=== PATIENT | male | born 1965 | race Caucasian/White ===

== ENCOUNTER 2025-01-31 18:49 | Emergency (ER) | payer OTHER, SELFPAY ==
[2025-01-31 18:50] VITALS: BP 139/76; PULSE 63; RESP 18; TEMP 36.7; O2SAT 100; BMI 34.8
--- NOTE | 2025-01-31 18:53 | EKG12_ITS ---
Test Reason : CP Blood Pressure : */* mmHG Vent. Rate : 67 BPM Atrial Rate : 67 BPM P-R Int : 168 ms QRS Dur : 106 ms QT Int : 440 ms P-R-T Axes : 18 13 75 degrees QTcB Int : 464 ms Sinus rhythm with Premature atrial complexes Incomplete right bundle branch block Borderline ECG Confirmed by GOLDEN CRONIN, HUMERA ([id number]), editor continuity and script LORETTA ORDARTE ([id number]) on 02/03/2025 11:01:00 AM Referred By: Confirmed By: HUMERA FRANKS MD
[2025-01-31 19:25] LABS: Absolute Lymphocyte Count 2.01 X10^3/uL (0.83-4.51); Absolute Neutrophil Count 7.5 X10^3/uL (2.0-7.7); Basophil# 0.03 X10^3/uL; Basophil% 0.3 % (0-1); Eosinophil# 0.04 X10^3/uL; Eosinophils% 0.4 % (0-5); Hematocrit 40.1 % (40-54); Hemoglobin 13.8 g/dL (13.0-16.5); Lymphocyte # 2.01 X10^3/ul (0.83-4.51); Lymphocyte % 19.7 % (19-41); Mean Corp Hgb Conc 34.4 g/dL (32-36); Mean Corpuscular Hgb 28.9 pg (27.0-32.0); Mean Corpuscular Volume 84.1 fL (80-94); Mean Platelet Vol. 9.9 fl (6.2-12.0); Monocyte# 0.63 X10^3/uL; Monocyte% 6.2 % (0-10); NRBC Flagged by Analyzer 0 % (0-5); Neutrophil # 7.47 X10^3/uL (2.7-7.7); Neutrophil % 73.2 % (47-70); Platelet Count 210 K/mm3 (150-450); RBC Distribution Width CV 12.9 % (11.6-14.6); RBC Distribution Width SD 39.4 fl (35.1-43.9); Red Blood Count 4.77 M/mm3 (4.6-6.2); White Blood Count 10.2 K/mm3 (4.4-11.0)
--- NOTE | 2025-01-31 19:40 | RAD_ITS ---
PROCEDURE: CHEST 1 VIEW (PORTABLE) 01/31/2025 REASON FOR EXAM: CHEST PAIN TECHNIQUE: Frontal view of the chest. COMPARISON: None. FINDINGS: The heart size is normal. The lungs are clear. The bones are unremarkable. RAD/Chest 1 View (Portable) IMPRESSION: Negative Chest. Reading Location: [id number]
[2025-01-31 20:00] LABS: Anion Gap 13 (5-15); BUN 13 mg/dL (4-19); BUN/Creat Ratio 9.3 RATIO (10-20); Calcium,Total 9.3 mg/dL (7.6-11.0); Carbon Dioxide 22.5 mmol/L (21.0-32.0); Chloride 101 mmol/L (98-108); Creatinine, Serum 1.43 mg/dL (0.70-1.20); EST Glomerular Filtration Rate 57 (>60); Estimated Creatinine Clearance 76.33 ml/min (50-250); Glucose 92 mg/dL (70-99); Potassium 3.5 mmol/L (3.3-5.1); Sodium Level 136 mmol/L (133-145); Troponin T High Sensitivity 10 ng/L (<=22)
--- NOTE | 2025-01-31 20:07 | ED.VIS.CHEST ---
HPI History of Present Illness Chief Complaint: Chest Pain Informant: patient Onset/Context/Timing Onset: Today and Hours Activity at onset: gradual Timing: Continuous and - (Left-sided stabbing chest pain that started at 1:00 resolved by 7 PM.) Quality: Positive for Pain, Sharp and Stabbing Location: Left Chest Current Severity: Gone Maximum Severity: Mild Worsened By: Nothing Relieved By: Nothing Associated Symptoms: Positive for Nausea, Vomiting, Diaphoresis and Acid Reflux; Negative for Cough, Fever, Lightheadedness or Palpitations Narrative Narrative: 59-year-old male past medical history of bipolar reflux. Was working in his yard shoveling dirt and pulling weeds. Around 1 PM had some stabbing left-sided chest discomfort. Said he felt nauseated. He did not vomit. He just felt generally tired. came 2 hours from the game of the emergency department his symptoms stopped around 7 PM. Denies any cardiac history he has had a stress test years ago that was negative. Has never had a heart cath. He is unsure of his family history. He is a non-smoker. He denies any recent exertional chest pain or chest pain with walking up steps. No history of DVT or PE risk factors. No hemoptysis. Pain was not pleuritic. He has had no recent travel, surgery or immobilization. No calf pain or swelling. Prior Similar Symptoms: No Recent Illness/Hospitalization: No CVD Risk Factors: Negative for Hypertension, Diabetes, Hypercholesterolemia, Family History 1' </=55 or Smoking PE Risk Factors: Negative for Recent Travel/Surgery, Recent Immobilization, Prior DVT or PE or OCP + Smoking + >/=35 TAD Risk Factors: Negative for Marfan's Syndrome [facility] Medical History (Updated 01/31/25 @ 20:20 by Jennifer Johnson) Acid reflux Home Medications ?Medication ?Instructions ?Recorded ?Last Taken ?Type testosterone (AndroGel) 75 g transdermal DAILY 04/01/14 Unknown History aspirin 325 mg tablet 325 mg PO BID #60 tabs 03/02/15 Unknown Rx fluoxetine 20 mg capsule 40 mg (2 x 20 mg) PO DAILY ##0 03/02/15 03/01/15 Rx omeprazole 20 mg capsule,delayed 20 mg PO DAILY ##30 03/02/15 Unknown Rx release oxycodone 5 mg tablet 5 - 10 mg (1 - 2 x 5 mg) PO Q4H 03/02/15 Unknown Rx PRN PRN PAIN ##60 Allergy/AdvReac Type Severity Reaction Status Date / Time acetaminophen (From Vicodin) Allergy Nausea Verified 01/31/25 18:50 hydrocodone bitartrate (From Allergy Nausea Verified 01/31/25 18:50 Vicodin) Social History (Updated 01/31/25 @ 20:20 by Jennifer Johnson) household members: spouse housing: house Smoking Status: Never smoker ROS ROS ED ROS Narrative Chest pain today. No recent exertional chest pain or shortness of breath. Review of Systems ROS Unobtainable: Denies due to encephalopathy Constitutional Constitutional ED: Denies chills or fever(s) Eyes Eyes: Reports none ENT ENT ED: Denies ear pain Cardiovascular Cardiovascular: Reports as per HPI and chest pain; Denies palpitations or racing heartbeat Respiratory/Chest Respiratory/Chest: Denies cough or dyspnea Gastrointestinal Gastrointestinal: Reports nausea; Denies abdominal pain Genitourinary Genitourinary ED: Denies dysuria or hematuria Musculoskeletal Musculoskeletal: Denies arthralgias or back pain Integumentary Denies abscess or Abrasions Neurologic Neurologic: Denies headache(s) Psychiatric Psychiatric: Denies anxiety Endocrine Endocrinology: Denies cold intolerance Hematologic/Lymphatic Hematologic/Lymphatic: Denies easy bleeding, easy bruising or lymphadenopathy Allergic/Immunologic Allergic/Immunologic ED: Denies mouth swelling, tongue swelling or urticaria EXAM Physical Exam Narrative Exam Narrative: 59-year-old male sitting upright in bed. at bedside. Vital signs are stable afebrile. He does not look septic toxic any distress. Pulse ox 100% on room air no signs hypoxia. H EENT exam pupils round react light. Extra motions are intact. Neck nontender no JVD. Lungs clear to auscultation bilaterally. Heart regular rhythm no murmur. Chest wall nontender. No ecchymosis or bruising. No subcu air or crepitus. Abdomen soft nontender. Normal bowel sounds without peritoneal signs. No right upper quadrant tenderness. Moving all 4 extremities. 5 out of 5 assistant to the ceo strength. Radial pulses equal and symmetrical. Dorsi plantarflexion intact. Calves are nontender that edema or cords. Back nontender. Neurologically is awake alert no focal motor deficits. Benign exam. Const Vital Signs: 01/31/25 18:50 01/31/25 20:19 01/31/25 20:19 Temperature 98.1 F Temperature Source Oral Pulse Rate 63 74 Respiratory Rate 18 13 Respiratory Effort Blood Pressure 139/76 H 141/80 H Blood Pressure Mean 97 100 Pulse Ox 100 98 98 Oxygen Delivery Method Room Air Room Air 01/31/25 20:19 01/31/25 21:00 01/31/25 22:00 Temperature Temperature Source Pulse Rate 68 68 Respiratory Rate 16 16 Respiratory Effort Normal Non-Labored Blood Pressure 132/74 H 127/73 H Blood Pressure Mean 93 91 Pulse Ox 98 98 Oxygen Delivery Method Positive well nourished and well developed; Negative for cachectic, contractures or unkempt Constitutional Narrative: Currently symptom-free and pain-free. General Appearance ED: well developed; Negative for unkempt, cachectic, contractures or pallor Nutritional Appearance: Negative for cachectic HEENT Reports moist mucous membranes normocephalic and atraumatic Eyes PERRL and EOMs intact bilaterally Neck no lymphadenopathy and supple General: Negative for tenderness Chest Wall inspection of chest normal and palpation of chest normal Resp normal respiratory effort and clear to auscultation bilaterally Auscultation: Negative for rales, rhonchi or wheezes Cardio regular rate, regular rhythm, S1 normal heart sound, S2 normal heart sound and no murmurs GI normal to inspection, nondistended, normoactive bowel sounds, soft to palpation, non-tender, non-distended and no masses Back/Spine no CVA tenderness and no thoracic nor lumbar tenderness General Back: Negative for CVA tenderness Cervical Spine: Negative for cervical spine tenderness Extremity normal to inspection General Extremety ED: Negative for edema, pulses abnormal or tenderness General Extremity: Negative for edema or pulses abnormal Neuro oriented x3 and CN's II-XII intact bilaterally Sensorium / Orientation: awake, alert, oriented to person, oriented to place and oriented to time; Negative for confused, lethargic or stuporous Motor Exam: strength 5/5 throughout Psych mental status grossly normal Appearance: Negative for unkempt Attitude: No agitated Mood & Affect: Negative for depressed, anxious or tearful Skin no rashes or lesions noted and no wounds General Skin Exam: Negative for jaundice or pallor Rashes: No rashes noted Trauma: Negative for abrasion or laceration Heart Score History: Slightly/Non-Suspicious ECG: Normal Age: >45 - <65 years Risk Factors: No Risk Factors Troponin: </= Normal Limit Score: 1 MDM MDM MDM Narrative Medical decision making narrative: 59-year-old male with atypical nonreproducible chest pain. Currently pain-free. Undergo cardiac workup. No history of DVT or PE risk factors and clinically did not sound like PE. Repeat exam at 10:25 PM patient doing well. Resting comfortably in bed. at bedside. We went over all his test results. Given his unremarkable EKG, chest x-ray and labs. 2 negative troponins. Atypical pain. He has not had any recent exertional symptoms. We discussed admission versus follow-up with his primary care physician outpatient stress test. He preferred to be discharged home and follow-up with his doctor. They will call his doctor on Monday and set up follow-up outpatient stress testing. He knows if he is feeling worse to return. History & Record Review Discussion w/independent historian: Patient Additional record(s) reviewed:: Prior inpatient record, Prior outpatient record, Prior ED visit and Prior labs Lab Data Attestation: I reviewed the patient's lab results. Lab results narrative: CBC normal. White count of 10. H&H 13 and 40. Platelets 210. Electrolytes show a gap of 13. BUN and creatinine of 13 and 1.43. Initial troponin 10. 2-hour troponin is 9. Labs: Laboratory Results - last 24 hr 01/31/25 01/31/25 18:55 21:20 WBC 10.2 RBC 4.77 Hgb 13.8 Hct 40.1 MCV 84.1 MCH 28.9 MCHC 34.4 RDW Std Deviation 39.4 RDW Coeff of Rita 12.9 Plt Count 210 MPV 9.9 Immature Gran % (Auto) 0.200 Neut % (Auto) 73.2 H Lymph % (Auto) 19.7 Loving % (Auto) 6.2 Eos % (Auto) 0.4 Baso % (Auto) 0.3 Absolute Neuts (auto) 7.5 Absolute Lymphs (auto) 2.01 Nucleated RBC % 0 Sodium 136 Potassium 3.5 Chloride 101 Carbon Dioxide 22.5 Anion Gap 13 BUN 13 Creatinine 1.43 H Estim Creat Clear Calc 76.33 Est GFR (MDRD) Non-Af 57 L BUN/Creatinine Ratio 9.3 L Glucose 92 Calcium 9.3 Troponin T High Sens 10 Troponin T Hi Sens 2 Hr 9 Radiography Chest X-Ray - ED: 1 View, Read by ED Physician, Heart, Lungs, Mediastinum, Bony Structures, No Acute Disease and Chronic Changes Diagnostic Testing: Clinical Impression(s) from Imaging Studies Chest X-Ray 01/31/25 19:40 IMPRESSION: Negative Chest. Reading Location: [facility] Chest x-ray, portable, single view interpreted both by myself and the radiologist shows no acute abnormality. Normal cardiac silhouette. Normal mediastinum. Normal lung mackenzie. Chronic changes. Rhythm Strip Rhythm Strip: Sinus Rhythm Rate: 67 Ectopy: PAC(s) EKG Initial EKG: Attestation: I personally reviewed and interpreted this EKG as follows: Interpretation: Sinus Rhythm and No Acute Injury Pattern Comments: Normal sinus rhythm rate of 67 no acute signs of [place] or ischemia. Incomplete right bundle branch block. Discharge Plan Triage Chief Complaint: Chest Pain ED Provider: Pino Bryan Dx/Rx/DC Orders Prescriptions: No Action testosterone [AndroGel] 75 GM gel in metered-dose pump 75 g transdermal DAILY Patient Comments: supplement aspirin 325 MG tablet 325 mg PO BID Qty: 60 0RF Patient Comments: prevent blood clots oxycodone 5 MG tablet 5 - 10 mg PO Q4H PRN PRN (Reason: PAIN) Qty: 60 0RF Patient Comments: pain control fluoxetine 20 MG capsule 40 mg PO DAILY Qty: 0 0RF Patient Comments: mood omeprazole 20 MG capsule 20 mg PO DAILY Qty: 30 2RF Patient Comments: acid reflex Primary Care Provider: Vazquez Pardo Referrals: Vazquez Pardo DO [Primary Care Provider] - Print Language: Armenian
[2025-01-31 20:19] VITALS: BP 141/80; PULSE 74; RESP 13; O2SAT 98
[2025-01-31 21:00] VITALS: BP 132/74; PULSE 68; RESP 16; O2SAT 98
[2025-01-31 22:00] VITALS: BP 127/73; PULSE 68; RESP 16; O2SAT 98
[2025-01-31 22:04] LABS: Troponin T High Sens 2 HR 9 ng/L (<=22)
[2025-01-31 22:28] VITALS: BP 127/73; PULSE 68; RESP 16; TEMP 36.8; O2SAT 98
== END 2025-01-31 22:35 | disposition home or self-care (01) ==
PROVIDERS: Emergency Provider Emergency Medicine; PCP Preventive Medicine Occupational Medicine; Visit Provider Emergency Medicine
DX: R07.9 Chest pain, unspecified (principal); R11.2 Nausea with vomiting, unspecified; K21.9 Gastro-esophageal reflux disease without esophagitis
CPT/HCPCS: 71045; 80048; 84484; 85025; 93005; 99284; A4216